=== PATIENT | female | born 1985 | race Hispanic/Latino ===

== ENCOUNTER 2016-07-31 10:28 | Emergency (ER) | payer BC ==
[2016-07-31 10:57] LABS: Bilirubin Negative (Negative); Blood, Urine Negative (Negative); Clarity Cloudy (Clear); Glucose, Urine (Dipstick) Negative (Negative); Leukocyte Trace (Negative); Nitrite Negative (Negative); Protein, Urine (Dipstick) Trace mg/dL (Neg-Trace); Specific Gravity, Urine 1.025 (1.005-1.030)
[2016-07-31 11:05] LABS: Bacteria/HPF 1+ HPF (None Seen); Other Microscopic Description LARGE MUCOUS STRANDS; RBC/HPF None Seen HPF (0-3)
[2016-07-31 11:20] LABS: #Basophils 0.1 thou/uL (0.0-0.2); #Eosinphils 0.1 thou/uL (0.0-0.7); #Monocytes 0.8 thou/uL (0.11-0.59); #Neutrophils 4.9 thou/uL (1.40-6.50); %Basophils 1.5 % (0.0-1.0); %Eosinophils 1.4 % (0.0-10.0); %Lymphocytes 24.6 % (21.0-51.0); %Monocytes 10.6 % (0.0-10.0); %Neutrophils 61.9 % (42.0-75.0); Hemoglobin 13.4 g/dL (12.0-16.0); Mean Corpuscular HGB CONC 32.5 g/dL (32.0-36.0); Mean Corpuscular Hemoglobin 30.9 pg (27.0-31.0); Mean Platelet Volume 6.7 fL (7.4-10.4); Platelet Count 384 thou/uL (130-400); RBC Distribution Width 12.8 % (11.5-14.5); Red Blood Cell (RBC) Count 4.33 mill/uL (4.20-5.40)
[2016-07-31 11:20] LABS: Amphetamine Detected (NotDetected); Barbiturates Screen Not Detected (NotDetected); Benzodiazepine Screen Not Detected (NotDetected); Cocaine Metabolite Screen Not Detected (NotDetected); Medtox Control Line Valid? VALID (VALID); Methadone Not Detected (NotDetected); Methamphetamine Not Detected (NotDetected); Opiate Screen Not Detected (NotDetected); Oxycodone Screen Not Detected (NotDetected); Phencyclidine (PCP) Not Detected (NotDetected); THC/Cannabinoid Screen Not Detected (NotDetected); Tricyclic Screen Not Detected (NotDetected)
[2016-07-31 11:35] LABS: ALT (SGPT) 58 U/L (8-55); AST (SGOT) 24 U/L (5-34); Albumin 3.9 g/dL (3.5-5.0); Alkaline Phosphatase 96 U/L (40-150); Anion Gap 11 mmol/L (10-20); BUN (Urea Nitrogen) 12 mg/dL (7.0-18.7); Bilirubin, Total 0.4 mg/dL (0.2-1.2); Calc. Creatinine Clearance 0 mL/min (70-130); Calcium 8.8 mg/dL (7.8-10.44); Carbon Dioxide 26 mmol/L (22-29); Chloride 106 mmol/L (98-107); Estimated GFR-MDRD Greater than 90; Glucose 106 mg/dL (70-105); Potassium 4.4 mmol/L (3.5-5.1); Protein, Total 6.9 g/dL (6.0-8.3); Sodium 139 mmol/L (136-145)
[2016-07-31 11:37] LABS: CKMB 0.8 ng/mL (0-6.6); Troponin I Less than 0.010 ng/mL (< 0.028)
--- NOTE | 2016-07-31 14:01 | RAD ---
PORTABLE CHEST 07/31/2016 Comparison is made with the prior study of 05/19/2014. Today's exam at 1036 hours shows a normal-siz e heart and clear lungs. No lobar consolidation or effusion was seen. At most, there might be a li ttle bit of basilar streaking which could be atelectasis. I cannot confidently diagnose any pneumon ia at the moment. The trachea is midline, and the mediastinum appears normal. IMPRESSION: No definite acute findings. POS: HOME
--- NOTE | 2016-07-31 14:08 | CT ---
PRELIMINARY REPORT/[facility]/EMERGENCY AFTER HOURS PROCEDURE: EXAM: CT Head Without Intravenous Contrast CLINICAL HISTORY: 30 years old, female; Signs and symptoms; Dizziness; Patient HX: Blurred vision off and on for a wee k, worse today TECHNIQUE: Axial computed tomography images of the head/brain without intravenous contrast. EXAM DATE/TIME: 07/31/2016 10:52 AM COMPARISON: No relevant prior studies available. FINDINGS: Brain: Unremarkable. No hemorrhage. No significant white matter disease. No edema. Ventricles: Unremarkable. No ventriculomegaly. Bones/joints: Unremarkable. No acute fracture. Soft tissues: Unremarkable. Sinuses: Unremarkable as visualized. No acute sinusitis. Mastoid air cells: Unremarkable as visualized. No mastoid effusion. IMPRESSION: Normal head/brain CT. Thank you for allowing us to participate in the care of your patient. Dictated and Authenticated by: Nova Lamb MD 07/31/2016 11:08 AM Central Time ([place] \T\ [place]) FINAL REPORT CT BRAIN 07/31/2016 A non-contrast CT was done for evaluation of mental status changes. The ventricles are normal in si ze with no shift. No intracranial bleeding, stroke, or mass was seen. There was no evidence of acu te intracranial pathology. The calvarium appears normal, and the visible paranasal sinuses are blane r. IMPRESSION: No acute intracranial findings. Report in agreement with the preliminary reading by [facility]. POS: HOME
== END 2016-07-31 12:21 | disposition home or self-care (01) ==
LOC: BURERS 10:28
DX: I10 Essential (primary) hypertension (principal); H53.8 Other visual disturbances
CPT/HCPCS: 70450; 71010; 80053; 80306; 81003; 81015; 82553; 84443; 84484; 85025; 87086; 93005

== ENCOUNTER 2017-02-25 07:58 | Outpatient (CLI) | payer OTHER ==
--- NOTE | 2017-02-25 18:25 | RAD ---
CHEST TWO VIEWS 02/25/17 Comparison is made with the 07/2016 study. The heart is normal in size and the lungs are clear. There were no infiltrates to suggest pneumonia. No effusions were seen. The mediastinum appears normal. The trachea is midline. IMPRESSION: No acute thoracic finding. POS: HOME
== END 2017-02-25 07:59 | disposition home or self-care (01) ==
LOC: BURRAD 07:58
PROVIDERS: ATTEND Family Medicine
DX: R05 Cough (principal)
CPT/HCPCS: 71020

== ENCOUNTER 2018-06-06 21:29 | Emergency (ER) | payer BC ==
[2018-06-06] MEDS ORDERED: EPINEPHrine 1 mg/ml MDV (1ml Charge) ONE ×2 (21:41→22:26)
[2018-06-06] MEDS ORDERED: Famotidine 20 MG TAB ONE (21:41)
[2018-06-06] MEDS ORDERED: predniSONE 20 MG TAB ONE (21:41)
== END 2018-06-06 22:42 | disposition home or self-care (01) ==
LOC: BURERS 21:29
DX: T78.09XA Anaphylactic reaction due to other food products, initial encounter (principal)
CPT/HCPCS: 96372; J0171